=== PATIENT | male | born 1970 | race Hispanic/Latino ===

== ENCOUNTER 2018-12-08 22:57 | Emergency (ER) | payer BC, OTHER ==
[2018-12-08 23:25] LABS: BASOPHILS % (AUTO) 0.5 % (0.0-5.0); LYMPHOCYTES % (AUTO) 35.8 % (21.0-51.0); MEAN CORPUSCULAR HEMOGLOBIN 30.5 pg (27.0-33.0); MEAN CORPUSCULAR HGB CONC 34.7 g/dL (32.0-36.0); MEAN CORPUSCULAR VOLUME 87.9 fL (79-99); MONOCYTES % (AUTO) 11.4 % (3.0-13.0); NEUTROPHILS % (AUTO) 51.3 % (40.0-77.0); PLATELET COUNT (AUTO) 324 K/uL (130-400); RED BLOOD CELL COUNT(AUTO) 4.66 MIL/uL (4.50-6.20); RED CELL DISTRIBUTION WIDTH 13.4 % (11.0-15.5); WHITE BLOOD COUNT (AUTO) 10.9 K/uL (4.8-10.8)
[2018-12-08] MEDS ORDERED: ASPIRIN 325 MG TABLET ONE (23:31)
[2018-12-08 23:36] LABS: CREATININE 1.2 mg/dL (0.5-1.5); POTASSIUM 3.6 mmol/L (3.5-5.1)
[2018-12-08 23:40] LABS: INR 1.01 (0.85-1.15); PARTIAL THROMBOPLASTIN TIME 27.3 SEC (26.3-35.5); PROTHROMBIN TIME 10.6 SEC (9.6-11.6)
[2018-12-08 23:49] LABS: ALBUMIN 3.6 g/dL (3.5-5.0); BILIRUBIN,TOTAL 1.5 mg/dL (0.2-1.0); TOTAL PROTEIN, SERUM 6.9 g/dL (6.0-8.3)
[2018-12-08] MEDS ORDERED: MORPHINE SULFATE 4 MG/1ML SYG ONE (23:58)
[2018-12-08] MEDS ORDERED: ONDANSETRON HCL 4 MG/2 ML VIAL ONE (23:58)
[2018-12-08] MEDS ORDERED: SODIUM CHLORIDE 0.9% 1000ML 1,000 ML IV ONE (23:58)
[2018-12-09] MEDS ORDERED: IOHEXOL-350 75 ML VIAL IV ONE (02:07)
[2018-12-09] MEDS ORDERED: ONDANSETRON HCL 4 MG/2 ML VIAL ONE (02:46)
== END 2018-12-09 04:31 | disposition home or self-care (01) ==
LOC: EDH 22:57
DX: R07.89 Other chest pain (principal); I10 Essential (primary) hypertension; Z72.0 Tobacco use
CPT/HCPCS: 36415; 71045; 71275; 80053; 82550; 83874; 83880; 84484 ×2; 85025; 85378; 85610; 85730; 93005 ×2; 96374; 96375; 99285; J2270; J2405 ×2; J7030; Q9967

== ENCOUNTER 2019-12-14 06:56 | Emergency (ER) | payer OTHER ==
[2019-12-14] MEDS ORDERED: KETOROLAC TROMETHAMINE 60 MG/2 ML VIAL ONE (08:27)
== END 2019-12-14 09:07 | disposition home or self-care (01) ==
LOC: EDH 06:56
DX: M19.90 Unspecified osteoarthritis, unspecified site (principal); I10 Essential (primary) hypertension; E66.9 Obesity, unspecified; Z87.891 Personal history of nicotine dependence
CPT/HCPCS: 73562; 96372; 99283; J1885

== ENCOUNTER 2021-03-22 22:07 | Inpatient (IN) | payer SELFPAY ==
[~2021-03-22] VITALS: Ht 180.3 cm; Wt 153.9 kg
[2021-03-22 22:15] VITALS: BP 92/61
[2021-03-22 22:50] LABS: BASOPHILS % (AUTO) 0.4 % (0.0-5.0); EOSINOPHILS % (AUTO) 0.2 % (0.0-8.0); HEMATOCRIT 45.7 % (42-54); LYMPHOCYTES % (AUTO) 14.1 % (21.0-51.0); MEAN CORPUSCULAR HEMOGLOBIN 30.1 pg (27.0-33.0); MEAN CORPUSCULAR HGB CONC 36.3 g/dL (32.0-36.0); MEAN CORPUSCULAR VOLUME 82.9 fL (79-99); MONOCYTES % (AUTO) 13.4 % (3.0-13.0); NEUTROPHILS % (AUTO) 71.1 % (40.0-77.0); PLATELET COUNT (AUTO) 302 K/uL (130-400); RED BLOOD CELL COUNT(AUTO) 5.51 MIL/uL (4.50-6.20); WHITE BLOOD COUNT (AUTO) 13.2 K/uL (4.8-10.8)
[2021-03-22 22:59] LABS: CREATININE 4.9 mg/dL (0.5-1.5); POTASSIUM 3.1 mmol/L (3.5-5.1)
[2021-03-22] MEDS ORDERED: 0.9%NACL 1000ML 1,000 ML IV PRN (23:00)
[2021-03-22] MEDS ORDERED: PROMETHAZINE HCL 25 MG/ML 1ML AMPULE IM ONE (23:00)
[2021-03-22 23:05] LABS: ALBUMIN 3.5 g/dL (3.5-5.0); TOTAL PROTEIN, SERUM 8.7 g/dL (6.0-8.3)
[2021-03-22 23:35] VITALS: BP 100/60
[2021-03-22] MEDS: PHARMACY COMMUNICATION MISC SCH (23:36)
[2021-03-23] VITALS (18 sets, daily range): BP systolic 84–137; BP diastolic 40–71
[2021-03-23 00:01] LABS: BILIRUBIN,URINE Moderate (NEGATIVE); COLOR,URINE Dark Yellow (YELLOW); GLUCOSE, URINE (UA) TRACE mg/dL (NEGATIVE); KETONES,URINE Trace mg/dL (NEGATIVE); LEUKOCYTE ESTERASE ,URINE Small (NEGATIVE); NITRATE,URINE Positive (NEGATIVE); OCCULT BLOOD,URINE Negative (NEGATIVE); PROTEIN,URINE POS 2+ mg/dL (NEGATIVE)
[2021-03-23 00:02] LABS: APPEARANCE,URINE CLOUDY (CLEAR)
[2021-03-23 00:37] LABS: AMORPHOUS SEDIMENT,UR Few /LPF (None Seen); BACTERIA,URINE Rare /HPF (None Seen); RBC,URINE None Seen /HPF (0-1); SQUAMOUS EPITHELIAL CELL,UR Rare /HPF (0-2); WBC,URINE 0-1 /HPF (0-1)
[2021-03-23] MEDS ORDERED: NS-20 MEQ KCL 1000ML 1,000 ML IV SCH (01:30)
[2021-03-23] MEDS ORDERED: NS-20 MEQ KCL 1000ML 1,000 ML IV ONE (01:32)
[2021-03-23] MEDS ORDERED: POTASSIUM CHLORIDE 20MEQ/100ML 100 ML IV ONE (01:33)
[2021-03-23] MEDS: POTASSIUM CHLORIDE 40MEQ/20ML 40 MEQ in 0.9%NACL 1000ML 1,000 ML IV SCH ×3 (01:51→22:24)
[2021-03-23] MEDS ORDERED: PANT40TA54 PO (02:42)
[2021-03-23] MEDS ORDERED: LISI1TAB29 PO (02:42)
[2021-03-23] MEDS ORDERED: NITROGLYCERIN 0.4 MG SL TAB SL PRN (03:00)
[2021-03-23] MEDS ORDERED: MORPHINE 4 MG SYG IV PRN (03:00)
[2021-03-23] MEDS ORDERED: MEROPENEM 500 MG VIAL IV SCH (03:00)
[2021-03-23] MEDS ORDERED: LACTULOSE 20 GM/30 ML UDCUP PO PRN (03:00)
[2021-03-23] MEDS ORDERED: MORPHINE 2 MG SYG IV PRN (03:00)
[2021-03-23] MEDS: PHARMACY COMMUNICATION MISC SCH ×6 (03:00→23:00)
[2021-03-23] MEDS ORDERED: ONDANSETRON 4MG INJ IV PRN (03:00)
[2021-03-23] MEDS ORDERED: MAG/ALUM/SIMETH 30 ML UDCUP PO PRN (03:00)
[2021-03-23 03:30] LABS: ABG BASE EXCESS -4.9 mmol/L (-2.0-3.0); ABG OXYGEN SATURATION 95.3 % (95.0-99.0); ABG PCO2 28 mmHg (35-48)
[2021-03-23 03:32] LABS: AMPHET/METH SCREEN,URINE NEGATIVE (NEGATIVE); BARBITURATE SCREEN, URINE NEGATIVE (NEGATIVE); BENZODIAZEPINES SCREEN,URINE NEGATIVE (NEGATIVE); CANNABINOID SCREEN,URINE NEGATIVE (NEGATIVE); COCAINE SCREEN,URINE NEGATIVE (NEGATIVE); OPIATE SCREEN,URINE NEGATIVE (NEGATIVE); PHENCYCLIDINE SCREEN,URINE NEGATIVE (NEGATIVE); SODIUM,URINE RANDOM < 14 mmol/l (40-220)
[2021-03-23] MEDS: LACTATED RINGERS 1000ML 1,000 ML IV SCH ×3 (03:50→20:39)
[2021-03-23 03:55] LABS: CREATININE,URINE RANDOM 548 mg/dL (30-135)
[2021-03-23] MEDS: CEFTRIAXONE 1G VIAL IVP SCH (04:51)
[2021-03-23] MEDS: METRONIDAZOLE 500MG/100ML BAG 100 ML IVPB SCH ×3 (07:48→22:11)
[2021-03-23] MEDS ORDERED: NOREPINEPHRINE 4MG/NS 250ML 250 ML IV SCH (09:30)
[2021-03-23] MEDS ORDERED: 0.9%NACL 1000ML 1,000 ML IV SCH (09:30)
[2021-03-23 09:53] LABS: CHOLESTEROL 130 mg/dL (<200); HDL CHOLESTEROL 18 mg/dL (29-71); LDL DIRECT 81 mg/dL (0-99); TRIGLYCERIDES 133 mg/dL (30-200)
[2021-03-23 10:03] LABS: HEMATOCRIT 39.6 % (42-54); MEAN CORPUSCULAR HEMOGLOBIN 30.1 pg (27.0-33.0); MEAN CORPUSCULAR HGB CONC 36.4 g/dL (32.0-36.0); MEAN CORPUSCULAR VOLUME 82.7 fL (79-99); PLATELET COUNT (AUTO) 270 K/uL (130-400); RED BLOOD CELL COUNT(AUTO) 4.79 MIL/uL (4.50-6.20); RED CELL DISTRIBUTION WIDTH 13.2 % (11.0-15.5); WHITE BLOOD COUNT (AUTO) 12.3 K/uL (4.8-10.8)
[2021-03-23] MEDS: ENOXAPARIN SODIUM 40 MG/0.4 ML SYRINGE SQ SCH (10:13)
[2021-03-23] MEDS: PANTOPRAZOLE 40 MG/VIAL IVP SCH (10:13)
[2021-03-23 10:32] LABS: CREATININE 4.1 mg/dL (0.5-1.5)
[2021-03-23 10:35] LABS: POTASSIUM 2.8 mmol/L (3.5-5.1)
[2021-03-23 11:11] LABS: BAND NEUTROPHILS % (MANUAL) 20 % (0-2); LYMPHOCYTES % (MANUAL) 19 % (22-44); MAN.DIFF COMMENT-IMPRESSION MANUAL DIFFERENTIAL; MONOCYTES % (MANUAL) 9 % (2-9); PLATELET MORPHOLOGY COMMENT ADEQUATE; SEGMENTED NEUTROPHILS % 52 % (40-70)
[2021-03-23] MEDS ORDERED: SODIUM BICARBONATE 650 MG TAB PO PRN (12:30)
[2021-03-23 16:44] LABS: CREATININE 2.5 mg/dL (0.5-1.5)
[2021-03-23 16:45] LABS: POTASSIUM 2.9 mmol/L (3.5-5.1)
[2021-03-24] MEDS: LACTATED RINGERS 1000ML 1,000 ML IV SCH ×2 (01:51→09:12)
[2021-03-24] MEDS: PHARMACY COMMUNICATION MISC SCH ×2 (02:55→04:43)
[2021-03-24] MEDS: CEFTRIAXONE 1G VIAL IVP SCH (02:57)
[2021-03-24 04:00] VITALS: BP 105/52
[2021-03-24] MEDS: METRONIDAZOLE 500MG/100ML BAG 100 ML IVPB SCH (04:44)
[2021-03-24 08:12] VITALS: BP 123/60
[2021-03-24] MEDS ORDERED: POTASSIUM CHLORIDE 10MEQ/100ML 100 ML IV PRN (08:30)
[2021-03-24] MEDS ORDERED: LIDOCAINE HCL-MPF 1% 2ML VIAL IV PRN (08:30)
[2021-03-24 08:33] LABS: BASOPHILS % (AUTO) 0.5 % (0.0-5.0); EOSINOPHILS % (AUTO) 0.4 % (0.0-8.0); HEMATOCRIT 38.5 % (42-54); LYMPHOCYTES % (AUTO) 14.8 % (21.0-51.0); MEAN CORPUSCULAR HEMOGLOBIN 29.4 pg (27.0-33.0); MEAN CORPUSCULAR VOLUME 86.5 fL (79-99); MONOCYTES % (AUTO) 14.2 % (3.0-13.0); NEUTROPHILS % (AUTO) 69.3 % (40.0-77.0); PLATELET COUNT (AUTO) 277 K/uL (130-400); RED BLOOD CELL COUNT(AUTO) 4.45 MIL/uL (4.50-6.20); RED CELL DISTRIBUTION WIDTH 13.4 % (11.0-15.5); WHITE BLOOD COUNT (AUTO) 11.4 K/uL (4.8-10.8)
[2021-03-24] MEDS: POTASSIUM CHLORIDE 40MEQ/20ML 40 MEQ in 0.9%NACL 1000ML 1,000 ML IV SCH (08:36)
[2021-03-24 08:40] LABS: CREATININE 1.4 mg/dL (0.5-1.5); POTASSIUM 3.1 mmol/L (3.5-5.1)
[2021-03-24] MEDS: ENOXAPARIN SODIUM 40 MG/0.4 ML SYRINGE SQ SCH (09:09)
[2021-03-24] MEDS: PANTOPRAZOLE 40 MG/VIAL IVP SCH (09:09)
[2021-03-24] MEDS ORDERED: 0.9%NACL 1000ML 1,000 ML IV SCH (09:30)
[2021-03-24 11:42] VITALS: BP 116/55
[2021-03-24] MEDS ORDERED: KCL 20 MEQ ERTAB PO SCH (12:00)
[2021-03-24] MEDS ORDERED: LEVO750T46 PO (13:06)
[2021-03-24] MEDS ORDERED: METR500T PO (13:06)
== END 2021-03-24 14:15 | disposition home or self-care (01) | DRG 682 ==
LOC: EDH 22:07 → OBSVTOIN 22:08 → EDHIP 22:08 → 3DH 03-23 22:21
PROVIDERS: ADMIT Internal Medicine; ATTEND Internal Medicine
DX: N17.9 Acute kidney failure, unspecified (principal); K85.90 Acute pancreatitis without necrosis or infection, unspecified; E87.1 Hypo-osmolality and hyponatremia; Z68.42 Body mass index [BMI] 45.0-49.9, adult; K52.9 Noninfective gastroenteritis and colitis, unspecified; E86.0 Dehydration; E66.01 Morbid (severe) obesity due to excess calories; R73.03 Prediabetes; E87.6 Hypokalemia; Z20.822 Contact with and (suspected) exposure to COVID-19; K21.9 Gastro-esophageal reflux disease without esophagitis; I10 Essential (primary) hypertension; E87.8 Other disorders of electrolyte and fluid balance, not elsewhere classified; I95.9 Hypotension, unspecified; Z87.891 Personal history of nicotine dependence; Z79.899 Other long term (current) drug therapy
CPT/HCPCS: 36415; 36600; 71045; 76770; 80048; 80053; 80061; 80305; 81001; 82570; 82803; 82948; 83036; 83690; 83735; 84300; 85025; 87040; 87077; 87088; 87186; 87324; 87507; 87635; 99291; C9113; C9803; G0378; J0696; J1650; J2405; J2550; J3480; J3490; J7030; J7120

== ENCOUNTER 2022-06-10 14:30 | Emergency (ER) | payer BC ==
[~2022-06-10] VITALS: Ht 172.7 cm; Wt 154.2 kg
[~2022-06-10 14:30] MED LIST: LEVO750T68 PO; LISI1TAB53 PO; METR500T PO; PANT40TA54 PO
[2022-06-10 15:35] LABS: APPEARANCE,URINE CLEAR (CLEAR); BILIRUBIN,URINE NEGATIVE (NEGATIVE); COLOR,URINE LIGHT-YELLOW (YELLOW); GLUCOSE, URINE (UA) NEGATIVE (NEGATIVE); KETONES,URINE NEGATIVE (NEGATIVE); LEUKOCYTE ESTERASE ,URINE NEGATIVE Leu/uL (NEGATIVE); NITRATE,URINE NEGATIVE (NEGATIVE); OCCULT BLOOD,URINE NEGATIVE (NEGATIVE); PH,URINE 6.5 (5.0-8.0); PROTEIN,URINE NEGATIVE (NEGATIVE)
[2022-06-10 15:49] LABS: RBC,URINE 0-1 /HPF (0-1); WBC,URINE 0-1 /HPF (0-1)
[2022-06-10] MEDS ORDERED: CYCLOBENZAPRINE HCL 10 MG TABLET PO ONE (16:00)
[2022-06-10] MEDS ORDERED: KETOROLAC 30MG VIAL (30MG/ML) IM ONE (16:00)
[2022-06-10 16:48] VITALS: BP 123/74
[2022-06-10] MEDS ORDERED: IBUP-2070 PO (17:01)
[2022-06-10] MEDS ORDERED: CYCL10TA16 PO (17:01)
== END 2022-06-10 17:14 | disposition home or self-care (01) ==
LOC: EDH 14:30
DX: S29.012A Strain of muscle and tendon of back wall of thorax, initial encounter (principal); M54.50 Low back pain, unspecified; K21.9 Gastro-esophageal reflux disease without esophagitis; I10 Essential (primary) hypertension; Z87.442 Personal history of urinary calculi; Z79.899 Other long term (current) drug therapy; X58.XXXA Exposure to other specified factors, initial encounter; Y93.89 Activity, other specified; Y92.89 Other specified places as the place of occurrence of the external cause; Y99.8 Other external cause status
CPT/HCPCS: 99284; 81001; 96372; J1885